=== PATIENT | male | born 1955 | race Caucasian/White ===

== ENCOUNTER 2017-12-22 01:53 | Emergency (ER) | payer OTHER ==
[2017-12-22 02:34] LABS: #Basophils 0.1 thou/uL (0.0-0.2); #Eosinphils 0.3 thou/uL (0.0-0.7); #Lymphocytes 2.7 thou/uL (1.20-3.40); #Monocytes 0.7 thou/uL (0.11-0.59); #Neutrophils 5.6 thou/uL (1.40-6.50); %Basophils 1.4 % (0.0-1.0); %Eosinophils 3.1 % (0.0-10.0); %Lymphocytes 28.6 % (21.0-51.0); %Monocytes 7.6 % (0.0-10.0); %Neutrophils 59.3 % (42.0-75.0); Hemoglobin 12.8 g/dL (14.0-18.0); Mean Corpuscular HGB CONC 34.1 g/dL (32.0-36.0); Mean Corpuscular Hemoglobin 34.5 pg (27.0-31.0); Mean Platelet Volume 6.3 fL (7.4-10.4); Platelet Count 253 thou/uL (130-400); RBC Distribution Width 12.6 % (11.5-14.5); White Blood Cell (WBC) Count 9.5 thou/uL (4.8-10.8)
[2017-12-22 02:54] LABS: ALT (SGPT) 13 U/L (8-55); AST (SGOT) 27 U/L (5-34); Albumin 4.2 g/dL (3.5-5.0); Alcohol 212 mg/dL (Less than 10); Alkaline Phosphatase 83 U/L (40-150); Anion Gap 15 mmol/L (10-20); BUN (Urea Nitrogen) 19 mg/dL (8.4-25.7); Bilirubin, Total 0.3 mg/dL (0.2-1.2); CK (CPK) 523 U/L (30-200); Calc. Creatinine Clearance 0 mL/min (70-130); Carbon Dioxide 26 mmol/L (22-29); Chloride 105 mmol/L (98-107); Estimated GFR-MDRD 60; Globulin 3.1 g/dL (2.4-3.5); Glucose 89 mg/dL (70-105); Potassium 4.2 mmol/L (3.5-5.1); Protein, Total 7.3 g/dL (6.0-8.3); Sodium 142 mmol/L (136-145)
[2017-12-22 02:58] LABS: CKMB 3.8 ng/mL (0-6.6); Troponin I Less than 0.010 ng/mL (< 0.028)
--- NOTE | 2017-12-22 09:37 | CT ---
PRELIMINARY REPORT/[facility]/EMERGENCY AFTER HOURS PROCEDURE: EXAM: CT Head Without Intravenous Contrast CLINICAL HISTORY: 62 years old, male; Injury or trauma; Fall; Initial encounter; Abrasion; Head, generalized; Patient H X: Er 5; Fell yesterday. Pt accidentally took 1 extra lisinopril tonight TECHNIQUE: Axial computed tomography images of the head/brain without intravenous contrast. COMPARISON: No relevant prior studies available. FINDINGS: Brain: Mild volume loss No hemorrhage. Mild white matter disease. No edema. Ventricles: Unremarkable. No ventriculomegaly. Bones/joints: Unremarkable. No acute fracture. Soft tissues: Unremarkable. Sinuses: Chronic appearing right maxillary sinusitis. Mild mucosal thickening in the left frontal sin us and ethmoid air cells bilaterally No acute sinusitis. Mastoid air cells: Unremarkable as visualized. No mastoid effusion. IMPRESSION: No intracranial hemorrhage.Please see discussion above. Thank you for allowing us to participate in the care of your patient. Dictated and Authenticated by: Jf Smith MD 12/22/2017 2:35 AM Central Time ([place] & [place]) FINAL REPORT NONCONTRAST HEAD CT: Date: 12/22/17 HISTORY: Fall. Pain. COMPARISON: 08/09/14. FINDINGS/IMPRESSION: This report is in agreement with the preliminary report by [facility]. No intracranial post-traumatic seque lae. POS: [facility]
--- NOTE | 2017-12-22 09:38 | CT ---
PRELIMINARY REPORT/[facility]/EMERGENCY AFTER HOURS PROCEDURE: EXAM: CT Cervical Spine Without Intravenous Contrast CLINICAL HISTORY: 62 years old, male; Injury or trauma; Fall; Initial encounter; Abrasion; Patient HX: Er 5; Fell yeste rday. Pt accidentally took 1 extra lisinopril tonight TECHNIQUE: Axial computed tomography images of the cervical spine without intravenous contrast. Coronal and sagittal reformatted images were created and reviewed. COMPARISON: No relevant prior studies available. FINDINGS: Vertebrae: Loss of vertebral body height, presumed degenerative No acute fracture.Note is made of an unfused posterior ring of C1, a normal variant. Discs/spinal canal/neural foramina: No acute findings. Central canal and foraminal stenosis most pron ounced at C3-C4 and C5-C6 Soft tissues: Unremarkable. Lung apices: Mild emphysema IMPRESSION: No definite acute cervical fracture observed Thank you for allowing us to participate in the care of your patient. Dictated and Authenticated by: Jf Smith MD 12/22/2017 2:32 AM Central Time ([place] & [place]) FINAL REPORT CT CERVICAL SPINE WITHOUT CONTRAST: HISTORY: Fall. Injury. Pain. COMPARISON: None. TECHNIQUE: A noncontrast head CT is performed from the skull base to the skull vertex. FINDINGS: This report is in agreement with the preliminary report by [facility]. There is no acute cervical spine fra cture. Mild loss of vertebral body height at T1 likely due to chronic process. POS: [facility]
== END 2017-12-22 03:26 | disposition home or self-care (01) ==
LOC: ERS 01:53
DX: S06.0X0A Concussion without loss of consciousness, initial encounter (principal); F10.129 Alcohol abuse with intoxication, unspecified; K21.9 Gastro-esophageal reflux disease without esophagitis; F32.9 Major depressive disorder, single episode, unspecified; F41.9 Anxiety disorder, unspecified; F17.210 Nicotine dependence, cigarettes, uncomplicated; Z71.6 Tobacco abuse counseling; Z79.899 Other long term (current) drug therapy; Z91.81 History of falling; W01.0XXA Fall on same level from slipping, tripping and stumbling without subsequent striking against object, initial encounter
CPT/HCPCS: 36415; 70450; 72125; 80053; 80307; 82553; 84484; 85025; 93005; 99406

== ENCOUNTER 2018-04-14 09:36 | Outpatient (CLI) | payer OTHER ==
[2018-04-14] MEDS ORDERED: Gadobenate Dimeglumine 529 MG/1 ML (20ML VIAL) ONE (13:16)
--- NOTE | 2018-04-14 15:06 | NM ---
WHOLE BODY BONE SCAN: Date: 04-14-18 Comparison: None. History: Malignant neoplasm of prostate gland. Technique: Anterior and posterior whole body imaging is obtained following the intravenous administra tion of 29.5 mCi Technetium 99M labelled MDP. FINDINGS: There is physiologic activity within the kidneys and urinary bladder. There is a focal area of increased radiotracer activity on posterior imaging overlying the L5-S1 leve l on the left suggesting facet disease. No long bone lesions, pelvic lesions, rib lesions, or calvarial lesions are noted. IMPRESSION: No scintigraphic evidence of osseous metastatic disease. POS: [facility]
--- NOTE | 2018-04-15 13:36 | MRI ---
MRI OF THE PROSTATE WITHOUT AND WITH CONTRAST: History: Prostate cancer. Technique: Multiplanar, multisequence MRI images were obtained in the prostate without and with IV co ntrast. FINDINGS: There is a large area of low T2 signal and restricted diffusion in the left aspect of the peripheral zone of the prostate. This extends from the apex to the base. This lesion is approximately 3.7 cm in greatest dimension. Near the apex, it appears to extend across the midline to the right aspect of the prostate. No other prostate lesions are identified. The seminal vesicles are intact. Neurovascular bundles are intact. The neurovascular bungle is in the near vicinity of the mass in the left aspect of the prostate. No definite extraprostatic extension i s seen. No pelvic adenopathy is seen. No marrow signal abnormality is present. IMPRESSION: PIRADS category 5 - very high likelihood that a clinically significant cancer is present. POS: [facility]
== END 2018-04-14 09:37 | disposition home or self-care (01) ==
LOC: NM 09:36
PROVIDERS: ATTEND Urology
DX: C61 Malignant neoplasm of prostate (principal)
CPT/HCPCS: 72197; 78306; 82565; A9503; A9579

== ENCOUNTER 2018-06-15 10:45 | Outpatient (CLI) | payer OTHER ==
[2018-06-15 11:35] LABS: Mean Corpuscular Hemoglobin 34.2 pg (27.0-31.0); Mean Platelet Volume 7.4 fL (7.4-10.4); Platelet Count 173 thou/uL (130-400); RBC Distribution Width 13.1 % (11.5-14.5); Red Blood Cell (RBC) Count 4.09 mill/uL (4.70-6.10); White Blood Cell (WBC) Count 7.4 thou/uL (4.8-10.8)
[2018-06-15 11:40] LABS: Bilirubin Small (Negative); Blood, Urine Negative (Negative); Clarity CLEAR (Clear); Glucose, Urine (Dipstick) Negative (Negative); Leukocyte Negative (Negative); Nitrite Negative (Negative); Protein, Urine (Dipstick) Negative (Neg-Trace)
[2018-06-15 11:46] LABS: Bacteria/HPF None Seen HPF (None Seen); Hyaline Casts/LPF 0-3 HYALINE CAST LPF (0-3 Hyaline); Pathc Cast-AUWi Flag 0.58 (0-2.49); Squamous Epithelial 0-3 HPF (0-3); WBC/HPF 0-3 HPF (0-3)
[2018-06-15 11:47] LABS: PTT 31.1 SEC (22.9-36.1); Prothrombin Time 13.8 SEC (12.0-14.7)
[2018-06-15 12:03] LABS: ALT (SGPT) 14 U/L (8-55); AST (SGOT) 18 U/L (5-34); Albumin 4.1 g/dL (3.5-5.0); Alkaline Phosphatase 126 U/L (40-150); Anion Gap 13 mmol/L (10-20); BUN (Urea Nitrogen) 18 mg/dL (8.4-25.7); Bilirubin, Total 0.8 mg/dL (0.2-1.2); Calc. Creatinine Clearance 0 mL/min (70-130); Calcium 9.3 mg/dL (7.8-10.44); Carbon Dioxide 26 mmol/L (22-29); Chloride 102 mmol/L (98-107); Estimated GFR-MDRD 66; Globulin 3.1 g/dL (2.4-3.5); Glucose 115 mg/dL (70-105); Protein, Total 7.2 g/dL (6.0-8.3); Sodium 137 mmol/L (136-145)
== END 2018-06-15 10:46 | disposition home or self-care (01) ==
LOC: LABBT 10:45
PROVIDERS: ATTEND Urology
DX: Z01.812 Encounter for preprocedural laboratory examination (principal); C61 Malignant neoplasm of prostate
CPT/HCPCS: 80053; 81001; 85027; 85610; 85730; 87086

== ENCOUNTER 2019-11-24 09:13 | Outpatient (CLI) | payer OTHER ==
--- NOTE | 2019-11-24 10:14 | CT ---
EXAM: CT ABDOMEN AND PELVIS HISTORY: Elevated PSA. Status post prostatectomy. Prostate cancer. Restaging. COMPARISON: None. Procedure: Multiple contiguous axial images were obtained and a CT of the abdomen and pelvis with IV contrast. C oronal reformats were performed. FINDINGS: Lower Chest: Dependent atelectatic changes. No suspicious masses or nodules. Vessels: Normal caliber aorta. No periaortic fat stranding. Heart: Normal heart size. No obvious pericardial fluid. Abdomen: Portal vein:Patent. Gallbladder: No calcified gallstones. Normal caliber wall. Liver: 1.1 cm well-circumscribed hypodensity subcapsular location at the level of the hepatic dome. O therwise, unremarkable hepatic parenchyma. Pancreas: within normal limits. Spleen: within normal limits. Adrenals: within normal limits. Kidneys: Symmetric enhancement. No obstructive uropathy. Peritoneum: No ascites or free air, no fluid collection. Bowel: No evidence of bowel obstruction. Ileocecal junction is unremarkable. Normal caliber appendix. Scattered fecal material in a nondistended, nondilated colon. Mesentery and Retroperitoneum: No enlarged mesenteric or retroperitoneal lymph nodes. Abdominal Wall: within normal limits. Pelvis: Reproductive Organs: Reproductive organs are unremarkable. Pelvis: No mass, lymphadenopathy, free air or free fluid. Bladder: Mild mucosal prominence of the bladder is nonspecific. Prostate gland: Though there are no surgical clips in the bed of the prostate, prostate gland is pres umed to be surgically absent. Bones: Mild degenerative changes of the distal thoracic spine and lumbar spine. There are no lytic or blastic lesions. Sclerotic foci in the right hip are felt to be bone islands. Degenerative change along the lateral aspect of the right hip is noted. Inguinal region: There are peripherally enhancing nonenlarged bilateral inguinal lymph nodes. Fatty h ilum appear to be preserved. Largest lymph node, is in the right hilum and measures 1.2 x 0.7 cm. IMPRESSION: 1. No definite evidence of osseous metastases. 2. Presumed surgically absent prostate gland. 3. Probable subcapsular cyst at the hepatic dome. 4. Slight enhancement involving nonenlarged bilateral inguinal lymph nodes which is of uncertain sign ificance. Correlate with physical exam. Transcribed Date/Time: 11/24/2019 10:18 AM
[2019-11-24] MEDS ORDERED: Iopamidol 370 76% 100 ML VIAL ONE (12:52)
--- NOTE | 2019-11-24 14:51 | NM ---
WHOLE BODY BONE SCAN: HISTORY: Malignant neoplasm the prostate. Right hip pain RADIOPHARMACEUTICAL: 30 mCi technetium 99m-MDP injected intravenously COMPARISON:04/14/2018 CORRELATION: CT abdomen and pelvis from same date FINDINGS: There are foci of increased uptake in the anterolateral aspects of the right eighth and ninth ribs co rresponding to fractures on the CT scan from same date. These are new since the last study. There is scattered degenerative activity in the appendicular skeleton. No other abnormal areas of tracer localization are seen in the skeleton to suggest metastatic disease . Tracer excretion through the kidneys is within normal limits. IMPRESSION: No scintigraphic evidence of osseous metastatic disease.
== END 2019-11-24 09:14 | disposition home or self-care (01) ==
LOC: CT 09:13
PROVIDERS: ATTEND Radiology Radiation Oncology
DX: R97.21 Rising PSA following treatment for malignant neoplasm of prostate (principal); Z90.79 Acquired absence of other genital organ(s)
CPT/HCPCS: 74177; 78306; 82565; A9503; Q9967

== ENCOUNTER 2024-03-24 21:43 | Inpatient (IN) | payer OTHER, MEDICAID ==
[~2024-03-24 21:43] MED LIST: Iopamidol 370 76% 100 ML VIAL ONE
[2024-03-24] MEDS ORDERED: LevoFLOXacin 750 mg/D5W 150 ml Premix Bag ONE (22:22)
[2024-03-24 23:02] LABS: #Basophils Less than 0.03 10x3/uL (0.0-0.2); %Basophils 0.1 % (0.0-1.0); %Eosinophils 1.2 % (0.0-10.0); %Lymphocytes 15.4 % (21.0-51.0); %Monocytes 8.1 % (0.0-10.0); %Neutrophils 74.5 % (42.0-75.0); Hematocrit 39.7 % (42.0-52.0); Hemoglobin 13.7 g/dL (14.0-18.0); Mean Corpuscular HGB CONC 34.5 g/dL (32.0-36.0); Mean Corpuscular Hemoglobin 34.5 pg (27.0-31.0); Mean Platelet Volume 9.5 fL (7.4-10.4); Platelet Count 180 10x3/uL (130-400); Red Blood Cell (RBC) Count 3.97 mill/uL (4.70-6.10)
[2024-03-24 23:28] LABS: Troponin I Less than 0.010 ng/mL (< 0.028)
[2024-03-24 23:40] LABS: ALT (SGPT) 11 U/L (8-55); AST (SGOT) 33 U/L (5-34); Albumin 3.6 g/dL (3.4-4.8); Alkaline Phosphatase 166 U/L (40-110); Anion Gap 19 mmol/L (10-20); BUN (Urea Nitrogen) 14 mg/dL (8.4-25.7); Bilirubin, Total 0.5 mg/dL (0.2-1.2); Calc. Creatinine Clearance 0 mL/min (70-130); Calcium 9.1 mg/dL (7.8-10.44); Carbon Dioxide 26 mmol/L (23-31); Chloride 97 mmol/L (98-107); Estimated GFR 95; Globulin 3.4 g/dL (2.4-3.5); Glucose 97 mg/dL (80-115); Potassium 2.9 mmol/L (3.5-5.1); Sodium 139 mmol/L (136-145)
[2024-03-25] MEDS ORDERED: Potassium Chloride 20 MEQ TAB ONE (00:58)
[2024-03-25] MEDS ORDERED: Potassium Chloride 20 MEQ (100 mL) BAG ONE (00:58)
[2024-03-25] MEDS ORDERED: Acetaminophen 325 MG TAB PO PRN (01:15)
[2024-03-25] MEDS ORDERED: Ondansetron ODT 4 MG TAB SL PRN (01:15)
[2024-03-25] MEDS ORDERED: Ondansetron PF 4 MG/2 ML Vial IVP PRN (01:15)
[2024-03-25] MEDS ORDERED: Albuterol 2.5 MG (3 mL) NEB NEB PRN (01:54)
[2024-03-25 02:13] LABS: Lactic Acid 1.3 mmol/L (0.5-2.2)
[2024-03-25 03:11] VITALS: BMI 23.8
[2024-03-25] MEDS: Sodium Chloride 0.9% 1,000 ML IV SCH (04:34)
[2024-03-25 04:37] LABS: #Basophils Less than 0.03 10x3/uL (0.0-0.2); %Basophils 0.1 % (0.0-1.0); %Eosinophils 0.5 % (0.0-10.0); %Monocytes 9.5 % (0.0-10.0); %Neutrophils 80.4 % (42.0-75.0); Hemoglobin 12.1 g/dL (14.0-18.0); Mean Corpuscular HGB CONC 34.6 g/dL (32.0-36.0); Mean Corpuscular Hemoglobin 33.4 pg (27.0-31.0); Mean Corpuscular Volume 96.7 fL (78.0-98.0); Mean Platelet Volume 9.5 fL (7.4-10.4); Platelet Count 146 10x3/uL (130-400); Red Blood Cell (RBC) Count 3.62 mill/uL (4.70-6.10)
[2024-03-25 04:57] LABS: ALT (SGPT) 9 U/L (8-55); AST (SGOT) 29 U/L (5-34); Albumin 3.1 g/dL (3.4-4.8); Alkaline Phosphatase 159 U/L (40-110); Anion Gap 16 mmol/L (10-20); BUN (Urea Nitrogen) 12 mg/dL (8.4-25.7); Bilirubin, Total 0.7 mg/dL (0.2-1.2); Calc. Creatinine Clearance 98 mL/min (70-130); Calcium 8.5 mg/dL (7.8-10.44); Carbon Dioxide 24 mmol/L (23-31); Chloride 102 mmol/L (98-107); Estimated GFR 99; Glucose 104 mg/dL (80-115); Potassium 3.7 mmol/L (3.5-5.1); Protein, Total 6.1 g/dL (5.8-8.1); Sodium 138 mmol/L (136-145)
[2024-03-25] MEDS: Ipratropium/Albuterol 3 ML NEB NEB SCH (07:05)
[2024-03-25] MEDS: predniSONE 20 MG TAB PO SCH (10:30)
[2024-03-25] MEDS: Enoxaparin 40 MG (0.4 mL) SYRINGE SC SCH (10:30)
[2024-03-25] MEDS: Doxycycline 100 MG in Sodium Chloride 0.9% 100 ML IVPB SCH (10:30)
[2024-03-25] MEDS: guaiFENesin ER 600 MG TAB PO SCH (22:09)
[2024-03-26 04:20] LABS: #Basophils Less than 0.03 10x3/uL (0.0-0.2); #Eosinphils Less than 0.03 10x3/uL (0.0-0.7); %Basophils 0.1 % (0.0-1.0); %Eosinophils 0.1 % (0.0-10.0); %Lymphocytes 7.3 % (21.0-51.0); %Monocytes 7.6 % (0.0-10.0); %Neutrophils 84.6 % (42.0-75.0); Hematocrit 32.5 % (42.0-52.0); Hemoglobin 11.1 g/dL (14.0-18.0); Mean Corpuscular HGB CONC 34.2 g/dL (32.0-36.0); Mean Corpuscular Hemoglobin 33.6 pg (27.0-31.0); Mean Corpuscular Volume 98.5 fL (78.0-98.0); Mean Platelet Volume 9.7 fL (7.4-10.4); Platelet Count 122 10x3/uL (130-400); RBC Distribution Width 13.9 % (11.5-14.5)
[2024-03-26 04:55] LABS: ALT (SGPT) 7 U/L (8-55); AST (SGOT) 13 U/L (5-34); Albumin 2.7 g/dL (3.4-4.8); Alkaline Phosphatase 133 U/L (40-110); Anion Gap 13 mmol/L (10-20); BUN (Urea Nitrogen) 15 mg/dL (8.4-25.7); Bilirubin, Total 0.5 mg/dL (0.2-1.2); Calc. Creatinine Clearance 94 mL/min (70-130); Calcium 8.5 mg/dL (7.8-10.44); Carbon Dioxide 22 mmol/L (23-31); Chloride 104 mmol/L (98-107); Estimated GFR 98; Globulin 2.9 g/dL (2.4-3.5); Glucose 129 mg/dL (80-115); Potassium 3.3 mmol/L (3.5-5.1); Protein, Total 5.6 g/dL (5.8-8.1); Sodium 136 mmol/L (136-145)
[2024-03-26] MEDS: Potassium Chloride 20 MEQ TAB PO SCH ×2 (09:32→09:59)
[2024-03-26] MEDS: Diazepam 5 MG TAB PO SCH (09:32)
[2024-03-26 11:48] VITALS: BP 143/80; TEMP 98.1
== END 2024-03-26 16:30 | disposition home or self-care (01) | DRG 189 ==
LOC: ERS 21:43 → OBSVTOIN 03-25 01:10 → 2NO 03-25 01:10
PROVIDERS: ADMIT Emergency Medicine; ATTEND Emergency Medicine
DX: J96.01 Acute respiratory failure with hypoxia (principal); J44.1 Chronic obstructive pulmonary disease with (acute) exacerbation; C79.51 Secondary malignant neoplasm of bone; S22.41XA Multiple fractures of ribs, right side, initial encounter for closed fracture; M19.90 Unspecified osteoarthritis, unspecified site; G89.29 Other chronic pain; F41.9 Anxiety disorder, unspecified; Z85.46 Personal history of malignant neoplasm of prostate; M54.9 Dorsalgia, unspecified; M25.559 Pain in unspecified hip; K21.9 Gastro-esophageal reflux disease without esophagitis; F32.A Depression, unspecified; Z90.79 Acquired absence of other genital organ(s); Z79.899 Other long term (current) drug therapy; F17.210 Nicotine dependence, cigarettes, uncomplicated; E87.6 Hypokalemia; H54.7 Unspecified visual loss; F13.90 Sedative, hypnotic, or anxiolytic use, unspecified, uncomplicated; Z87.01 Personal history of pneumonia (recurrent)
CPT/HCPCS: 36415; 71046; 71275; 80053; 83605; 84145; 84484; 85025; 87040; 87077; 87149; 87186; 93005; 94640; J1650; J1956; J3480; J3490; J7050; J7512; J7620; Q9967